=== PATIENT | female | born 1980 | race Caucasian/White ===

== ENCOUNTER 2016-10-20 17:57 | Emergency (ER) | payer BC ==
[~2016-10-20] VITALS: Ht 172.7 cm; Wt 64.3 kg
[2016-10-20] MEDS ORDERED: HYDR2TAB29 PO (18:18)
[2016-10-20] MEDS ORDERED: OXYC40TA27 PO (18:18)
[2016-10-20] MEDS ORDERED: SODIUM CHLORIDE FLUSH 10ML SYR IVF ONE (18:30)
[2016-10-20 18:54] LABS: HEMATOCRIT 37.5 % (34.6-47.8); HEMOGLOBIN 12.3 g/dL (11.7-16.4); WHITE BLOOD COUNT 6.6 x10^3/uL (3.4-10)
[2016-10-20 19:03] LABS: ASPARTATE AMINO TRANSFERASE 8 U/L (15-37); BLOOD UREA NITROGEN 9 mg/dL (7-18)
[2016-10-20 20:29] VITALS: BP 107/77
== END 2016-10-20 20:32 | disposition home or self-care (01) ==
LOC: ED 19:01
DX: R00.2 Palpitations (principal)
CPT/HCPCS: 36415; 71010; 80053; 83735; 84439; 84443; 85025; 85379; 93005; 99285

== ENCOUNTER 2016-10-27 19:29 | Emergency (ER) | payer BC ==
[~2016-10-27] VITALS: Ht 172.7 cm; Wt 62.4 kg
[~2016-10-27 19:29] MED LIST: HYDR2TAB29 PO; OXYC40TA27 PO
[2016-10-27] MEDS ORDERED: SODIUM CHLORIDE FLUSH 10ML SYR IVF ONE (20:00)
[2016-10-27] MEDS ORDERED: HYDROmorphone 1 MG/ML, 1ML IM ONE (20:30)
[2016-10-27] MEDS ORDERED: HYDROmorphone 1 MG/ML, 1ML ONE (20:36)
[2016-10-27 20:39] LABS: BLOOD UREA NITROGEN 11 mg/dL (7-18)
[2016-10-27 20:42] LABS: HEMATOCRIT 39.4 % (34.6-47.8); HEMOGLOBIN 12.9 g/dL (11.7-16.4); WHITE BLOOD COUNT 5.9 x10^3/uL (3.4-10)
[2016-10-27 21:05] VITALS: BP 111/73
== END 2016-10-27 21:07 | disposition home or self-care (01) ==
LOC: ED 21:01
DX: M79.1 Myalgia (principal)
CPT/HCPCS: 36415; 80048; 82040; 85025; 96372; 99284; J1170

== ENCOUNTER 2017-02-15 17:21 | Emergency (ER) | payer BC ==
[~2017-02-15] VITALS: Ht 172.7 cm; Wt 61.5 kg
[2017-02-15] MEDS ORDERED: HYDROmorphone 4MG TABLET PO PRN (18:30)
[2017-02-15] MEDS ORDERED: HYDROmorphone 4MG TABLET PO ONE (19:30)
[2017-02-15 19:51] VITALS: BP 111/73
== END 2017-02-15 19:54 | disposition home or self-care (01) ==
LOC: ED 18:36
DX: S90.31XA Contusion of right foot, initial encounter (principal); M79.7 Fibromyalgia; G89.29 Other chronic pain; W20.8XXA Other cause of strike by thrown, projected or falling object, initial encounter; Y93.89 Activity, other specified; Y92.89 Other specified places as the place of occurrence of the external cause; Y99.8 Other external cause status
CPT/HCPCS: 99284